=== PATIENT | male | born 1990 | race Caucasian/White ===

== ENCOUNTER 2016-11-26 07:25 | Inpatient (IN) | payer BC ==
[~2016-11-26] VITALS: Ht 182.9 cm; Wt 93.8 kg
[~2016-11-26 07:25] MED LIST: CIPR-9 PO; HYDR50TA94 PO; LORA-474 PO; METR-1 PO; REGL10TA5 PO
[2016-11-26] MEDS ORDERED: GADODIAMIDE PF 287 MG/ML 20 ML VIAL (for RAD MRI) IV PUSH ONE (07:26)
[2016-11-26 07:27] VITALS: BP 142/90; PULSE 90; RESP 20; TEMP 98.8; O2SAT 98
--- NOTE | 2016-11-26 07:29 | PD ---
HPI Chief Complaint: Abdominal Pain Time Seen by Provider: 07:29 Travel History International Travel<30 days: No Contact w/Intl Traveler<30days: No Traveled to known affect area: No History of Present Illness HPI 26-year-old male came to the emergency room with history of right upper quadrant pain that has been there for past 1 week but worse today. Patient was in [place] emergency room yesterday for the exact same complain and had a CAT scan done. The CAT scan showed some heterogeneous area in the right lobe of the liver. An MRI was recommended. Patient was diagnosed with mesenteric adenitis and discharged home and asked to follow up with GI. His is here who was giving most of the history and says a GI appointment is due for tomorrow. However since the pain got really worse they decided to come here. Patient seems visibly uncomfortable and is not talking due to the discomfort. Vital signs are otherwise stable. I looked at his CAT scan and lab report from the [place] visit yesterday. PFSH Past Medical History Narrative Medical List of his past medical, surgical, social and family history is reviewed from the nursing note. Diminished Hearing: No Social History Alcohol Use: No Tobacco Use: Yes (CHEW) Substance Use: No Allergies-Medications (Allergen,Severity, Reaction): Coded Allergies: No Known Allergies (Unverified , 11/26/16) Comments No known drug allergies. Reported Meds & Prescriptions Reported Meds & Active Scripts Active Ativan (Lorazepam) 1 Mg Tab 1 Mg PO BID PRN Reglan (Metoclopramide HCl) 10 Mg Tab 10 Mg PO QID Flagyl (Metronidazole) 500 Mg Tab 500 Mg PO BID 10 Days Cipro (Ciprofloxacin HCl) 500 Mg Tab 500 Mg PO BID 10 Days Reported Hydroxyzine HCl 50 Mg Tab 50 Mg PO HS Narrative Medication List of his home medications reviewed from the nursing note. Review of Systems Except as stated in HPI: all other systems reviewed are Neg Physical Exam Narrative GENERAL: Awake, alert, significant distress, anxious SKIN: Focused skin assessment warm/dry. HEAD: Atraumatic. Normocephalic. EYES: Pupils equal and round. No scleral icterus. No injection or drainage. ENT: No nasal bleeding or discharge. Mucous membranes pink and moist. NECK: Trachea midline. No JVD. CARDIOVASCULAR: Regular rate and rhythm. No murmur appreciated. RESPIRATORY: No accessory muscle use. Clear to auscultation. Breath sounds equal bilaterally. GASTROINTESTINAL: Right upper quadrant guarding and tenderness, nondistended. Hepatic and splenic margins not palpable. MUSCULOSKELETAL: No obvious deformities. No clubbing. No cyanosis. No edema. NEUROLOGICAL: Awake and alert. No obvious cranial nerve deficits. Motor grossly within normal limits. Normal speech. PSYCHIATRIC: Appropriate mood and affect; insight and judgment normal. Data Data Last Documented VS Vital Signs Date Time Temp Pulse Resp B/P (MAP) Pulse Ox O2 Delivery O2 Flow Rate FiO2 11/26/16 07:27 98.8 90 20 142/90 (107) 98 Room Air Orders Orders Complete Blood Count With Diff (11/26/16 07:35) Comprehensive Metabolic Panel (11/26/16 07:35) Lipase (11/26/16 07:35) Lactic Acid (11/26/16 07:35) Urinalysis - C+S If Indicated (11/26/16 07:35) Iv Access Insert/Monitor (11/26/16 07:35) Ecg Monitoring (11/26/16 07:35) Oximetry (11/26/16 07:35) Morphine Inj (Morphine Inj) (11/26/16 07:45) Ondansetron Inj (Zofran Inj) (11/26/16 07:45) Sodium Chlor 0.9% 1000 Ml Inj (Ns 1000 M (11/26/16 07:35) Sodium Chloride 0.9% Flush (Ns Flush) (11/26/16 07:45) Mri Abdomen W&W/O Contrast (11/26/16 ) Gadodiamide Pf Inj (Omniscan Pf Inj) (11/26/16 07:26) Morphine Inj (Morphine Inj) (11/26/16 10:00) Consult Gastroenterology (11/26/16 ) (Hub Use Only)Inp Phy Cons/Ref (11/26/16 ) Admit To Inpatient (11/26/16 ) Code Status (11/26/16 10:27) Vital Signs (Adult) Q4H (11/26/16 10:27) Activity Oob Ad Faith (11/26/16 10:27) Energy Administrator / Telemetry .CONTINUOUS (11/26/16 10:27) Intake + Output CHAO.QSHIFT (11/26/16 10:27) Notify Dr: Other (11/26/16 10:27) Diet Npo (11/26/16 Lunch) Sodium Chlor 0.9% 1000 Ml Inj (Ns 1000 M (11/26/16 11:30) Sodium Chloride 0.9% Flush (Ns Flush) (11/26/16 21:00) Acetaminophen (Tylenol) (11/26/16 10:30) Ondansetron Inj (Zofran Inj) (11/26/16 10:30) Comprehensive Metabolic Panel (11/27/16 06:00) Complete Blood Count With Diff (11/27/16 06:00) Blood Culture (11/26/16 10:27) Case Management Consult (11/26/16 10:27) Scd Bilateral/Knee High CHAO.BID (11/26/16 10:27) Naloxone Inj (Narcan Inj) (11/26/16 10:30) Docusate Sodium-Senna (Shilpa-Colace) (11/26/16 21:00) Magnesium Hydroxide Liq (Milk Of Magnesi (11/26/16 10:30) Sennosides (Senokot) (11/26/16 10:30) Bisacodyl Supp (Dulcolax Supp) (11/26/16 10:30) Lactulose Liq (Lactulose Liq) (11/26/16 10:30) Inpatient Certification (11/26/16 ) Admit Order (Ed Use Only) (11/26/16 10:30) Drug Screen, Random Urine (11/26/16 10:30) Labs Laboratory Tests Test 11/26/16 07:45 11/26/16 09:20 11/26/16 09:30 White Blood Count 13.3 TH/MM3 Red Blood Count 4.42 MIL/MM3 Hemoglobin 13.7 GM/DL Hematocrit 38.6 % Mean Corpuscular Volume 87.2 FL Mean Corpuscular Hemoglobin 31.0 PG Mean Corpuscular Hemoglobin Concent 35.6 % Red Cell Distribution Width 12.4 % Platelet Count 222 TH/MM3 Mean Platelet Volume 7.7 FL Neutrophils (%) (Auto) 42.7 % Lymphocytes (%) (Auto) 22.0 % Monocytes (%) (Auto) 6.1 % Eosinophils (%) (Auto) 28.1 % Basophils (%) (Auto) 1.1 % Neutrophils # (Auto) 5.7 TH/MM3 Lymphocytes # (Auto) 2.9 TH/MM3 Monocytes # (Auto) 0.8 TH/MM3 Eosinophils # (Auto) 3.7 TH/MM3 Basophils # (Auto) 0.1 TH/MM3 CBC Comment DIFF FINAL Differential Comment Blood Urea Nitrogen 7 MG/DL Creatinine 1.10 MG/DL Random Glucose 87 MG/DL Total Protein 8.0 GM/DL Albumin 3.9 GM/DL Calcium Level 8.6 MG/DL Alkaline Phosphatase 111 U/L Aspartate Amino Transf (AST/SGOT) 60 U/L Alanine Aminotransferase (ALT/SGPT) 70 U/L Total Bilirubin 0.6 MG/DL Sodium Level 138 MEQ/L Potassium Level 4.6 MEQ/L Chloride Level 107 MEQ/L Carbon Dioxide Level 25.6 MEQ/L Anion Gap 5 MEQ/L Estimat Glomerular Filtration Rate 81 ML/MIN Lactic Acid Level 1.3 mmol/L Lipase 103 U/L Urine Color YELLOW Urine Turbidity CLEAR Urine pH 6.5 Urine Specific [place] 1.011 Urine Protein NEG mg/dL Urine Glucose (UA) NEG mg/dL Urine Ketones NEG mg/dL Urine Occult Blood NEG Urine Nitrite NEG Urine Bilirubin NEG Urine Urobilinogen LESS THAN 2.0 MG/DL Urine Leukocyte Esterase NEG Urine RBC LESS THAN 1 /hpf Urine WBC LESS THAN 1 /hpf Urine Hyaline Casts 1 /lpf Microscopic Urinalysis Comment CULT NOT INDICATED Urine Opiates Screen NEG Urine Barbiturates Screen NEG Urine Amphetamines Screen NEG Urine Benzodiazepines Screen NEG Urine Cocaine Screen NEG Urine Cannabinoids Screen NEG MDM Medical Decision Making Medical Screen Exam Complete: Yes Emergency Medical Condition: Yes Medical Record Reviewed: Yes Differential Diagnosis Liver abscess, liver hemorrhage Narrative Course 8:47 AM patient was given pain medication. Blood test results of back and patient has some leukocytosis which is slightly worsened than yesterday. LFTs are within acceptable limits. I ordered an MRI of his abdomen with and without contrast and currently patient is in MRI. Awaiting for the report of that. 10:11 AM the MRI report is back which does suggest heterogeneity in the liver with uncertain etiology. CBC shows significant eosinophilia. I discussed the case with GI specialist Dr. Celis and explained to him that I would like to admit this patient given his intractable abdominal pain and the abnormal MRI findings. Awaiting for the hospitalist to call back. Meanwhile at remedicated him for pain. Procedures EKG Prior to Arrival: No Physician Communication Physician Communication Dr. Celis Diagnosis Primary Impression: Intractable abdominal pain Additional Impressions: Abnormal MRI, liver Marked eosinophilia Admitting Information Admitting Physician Requests: it Marielena Yin MD Nov 26, 2016 07:29
[2016-11-26] MEDS ORDERED: SODIUM CHLOR 0.9% 1000 ML INJ 1,000 ML IV SCH (07:35)
[2016-11-26] MEDS ORDERED: SODIUM CHLORIDE 0.9% FLUSH 10 ML FLUSH IV FLUSH PRN ×2 (07:45→10:30)
[2016-11-26] MEDS ORDERED: MORPHINE SULFATE 4 MG/ML INJ IV PUSH ONE ×2 (07:45→10:00)
[2016-11-26] MEDS ORDERED: ONDANSETRON HCL 4 MG/2 ML VIAL IVP ONE (07:45)
[2016-11-26 07:56] LABS: AUTOMATED NEUTROPHIL # 5.7 TH/MM3 (1.8-7.7); BASOPHIL # 0.1 TH/MM3 (0-0.2); BASOPHIL % 1.1 % (0.0-2.0); EOSINOPHIL # 3.7 TH/MM3 (0-0.4); EOSINOPHIL % 28.1 % (0.0-4.0); HEMATOCRIT 38.6 % (39.0-51.0); HEMO FLAGS DIFF FINAL; LYMPHOCYTE # 2.9 TH/MM3 (1.0-4.8); MEAN CELL VOLUME 87.2 FL (80.0-100.0); MEAN CORPUSCULAR HGB CONC 35.6 % (32.0-36.0); MONO % 6.1 % (0.0-8.0); NEUT % 42.7 % (16.0-70.0); PLATELET COUNT 222 TH/MM3 (150-450); RED BLOOD COUNT 4.42 MIL/MM3 (4.50-5.90); RED CELL DISTRIBUTION WIDTH 12.4 % (11.6-17.2); WHITE BLOOD COUNT 13.3 TH/MM3 (4.0-11.0)
[2016-11-26 08:10] LABS: ALKALINE PHOSPHATASE 111 U/L (45-117); TOTAL BILIRUBIN ADULT 0.6 MG/DL (0.2-1.0)
[2016-11-26 08:17] LABS: ALT (GPT) 70 U/L (12-78); ANION GAP 5 MEQ/L (5-15); AST (GOT) 60 U/L (15-37); BICARBONATE 25.6 MEQ/L (21.0-32.0); BLOOD UREA NITROGEN 7 MG/DL (7-18); CHLORIDE 107 MEQ/L (98-107); GLOMERULAR FILTRATION RATE 81 ML/MIN (>89); SODIUM (NA) 138 MEQ/L (136-145)
[2016-11-26 08:20] LABS: POTASSIUM 4.6 MEQ/L (3.5-5.1)
--- NOTE | 2016-11-26 09:42 | RADRPT ---
EXAM DATE/TIME: 11/26/2016 08:33 [facility] COMPARISON: CT ABDOMEN & PELVIS W CONTRAST, November 25, 2016, 3:15. INDICATIONS : Abdominal pain. CONTRAST: 20 cc Omniscan (gadodiamide) IV MEDICAL HISTORY : None. SURGICAL HISTORY : None. ENCOUNTER: Initial ACUITY: 2 day PAIN SCORE: 6/10 LOCATION: Abdomen. TECHNIQUE: Multiplanar, multisequence magnetic resonance imaging of the abdomen was performed without and with i ntravenous contrast. FINDINGS: LIVER: The liver measures 16.7 cm. No fat or iron deposition is appreciated. There is abnormal diffusion sig nal in the right posterior liver primarily involving segments 6 and 7. This area demonstrates heterog eneous enhancement on the equilibrium and portal venous phase of enhancement. Delayed imaging demonst rates no perceived abnormality through this area. There is no definable mass. Portal vein is within n ormal limits. BILIARY: There is no intra- or extra-hepatic biliary ductal dilatation. Gallbladder contains no stones. SPLEEN: Spleen measures 15 cm in length. PANCREAS: Within normal limits. ADRENALS: Within normal limits. KIDNEYS: Normal size and signal intensity. There is no hydronephrosis or mass. OTHER: Aorta is nonaneurysmal. There is no lymphadenopathy. CONCLUSION: 1. Abnormal signal and enhancement in a geographic pattern involving segments 6 and 7. This is of unc ertain etiology. Given the diffusion signal abnormality this is unlikely to be simply related to perf usion abnormality, however, no mass is present. Imaging features are nonspecific. Nonspecific infecti on or inflammation is a consideration. Consider followup MRI in approximately 4-6 weeks to assess for change. 2. Mild splenomegaly. John Miller MD on November 26, 2016 at 9:31 Board Certified Radiologist. This report was verified electronically.
[2016-11-26 10:18] LABS: BLOOD, URINE NEG (NEG); COMMENT (UR) CULT NOT INDICATED; CULTURE IF INDICATED CULT NOT INDICATED; GLUCOSE,URINE NEG (NEG); HYALINE CAST, URINE 1 /lpf (RARE); KETONE, URINE NEG (NEG); NITRITE,URINE NEG (NEG); PH, URINE 6.5 (5.0-8.5); URINE COLOR YELLOW (YELLW/STRAW)
[2016-11-26] MEDS ORDERED: NALOXONE HCL 0.4 MG/ML AMP IV PUSH PRN (10:30)
[2016-11-26] MEDS ORDERED: MAGNESIUM HYDROXIDE SUSP 30 ML CUP PO PRN (10:30)
[2016-11-26] MEDS ORDERED: BISACODYL 10 MG SUPP RECTAL PRN (10:30)
[2016-11-26] MEDS ORDERED: ACETAMINOPHEN 325 MG TAB PO PRN (10:30)
[2016-11-26] MEDS ORDERED: ONDANSETRON HCL 4 MG/2 ML VIAL IVP PRN (10:30)
[2016-11-26] MEDS ORDERED: SENNOSIDES 8.6 MG TAB PO PRN (10:30)
[2016-11-26] MEDS ORDERED: LACTULOSE SYRUP 20 GM/30 ML CUP PO PRN (10:30)
--- NOTE | 2016-11-26 10:30 | HHI.HP ---
HPI Service [facility] Primary Care Physician No Primary Care Physician Admission Diagnosis Diagnoses: Chief Complaint: Abdominal pain Travel History International Travel<30 Days: No Contact w/Intl Traveler <30 Da: No Traveled to Known Affected Are: No History of Present Illness This is a pleasant 26 y/o male with Right upper quadrant pain for one week, but worsening today, he decided to come to ER for evaluation, seen initially at [place] [facility] yesterday and CT scan showed some heterogeneous area in the right lobe of the liver. An MRI was recommended. Patient was diagnosed with mesenteric adenitis and discharged home and asked to follow up with GI. His is here was giving most of the history and says a GI appointment is due for tomorrow. However since the baby got really worse they decided to come here. Patient seems visibly uncomfortable and is not talking due to the discomfort. Vital signs are otherwise stable. Seen in his bedroom and examined, stable no nausea, vomit or diarrhea at this time, he had an episode of nausea and vomit this morning before coming to ER, abdominal pain on epigastric area and upper left and right abdominal pain, 8/10 in intensity non radiated. Review of Systems Constitutional: DENIES: Fever, Chills, Change in appetite Endocrine: DENIES: Heat/cold intolerance Eyes: DENIES: Blurred vision, Eye pain Gastrointestinal: COMPLAINS OF: Abdominal pain, Nausea, Vomiting Except as stated in HPI: all other systems reviewed are Neg Past Family Social History Past Medical History No significant past medical history Past Surgical History Negative Reported Medications Reported Meds & Active Scripts Active Ativan (Lorazepam) 1 Mg Tab 1 Mg PO BID PRN Reglan (Metoclopramide HCl) 10 Mg Tab 10 Mg PO QID Flagyl (Metronidazole) 500 Mg Tab 500 Mg PO BID 10 Days Cipro (Ciprofloxacin HCl) 500 Mg Tab 500 Mg PO BID 10 Days Reported Hydroxyzine HCl 50 Mg Tab 50 Mg PO HS Allergies: Coded Allergies: No Known Allergies (Unverified , 11/26/16) Active Ordered Medications Current Medications Medications (Trade) Dose Ordered Sig/Josh Route Start Time Stop Time Status Last Admin (NS Flush) 2 ml UNSCH PRN IV FLUSH 11/26/16 07:45 Sodium Chloride 1,000 ml @ 100 mls/hr Q10H IV 11/26/16 11:30 (NS Flush) 2 ml BID IV FLUSH 11/26/16 21:00 (Tylenol) 650 mg Q4H PRN PO 11/26/16 10:30 (Zofran Inj) 4 mg Q6H PRN IVP 11/26/16 10:30 (Narcan Inj) 0.4 mg UNSCH PRN IV PUSH 11/26/16 10:30 (Shilpa-Colace) 1 tab BID PO 11/26/16 21:00 (Milk Of Magnesia Liq) 30 ml Q12H PRN PO 11/26/16 10:30 (Senokot) 17.2 mg Q12H PRN PO 11/26/16 10:30 (Dulcolax Supp) 10 mg DAILY PRN RECTAL 11/26/16 10:30 (Lactulose Liq) 30 ml DAILY PRN PO 11/26/16 10:30 (Morphine Inj) 2 mg Q3H PRN IV PUSH 11/26/16 10:45 Piperacillin Sod/ Tazobactam Sod 50 ml @ 100 mls/hr Q6H IV 11/26/16 12:00 (Protonix Inj) 40 mg Q24H IV PUSH 11/26/16 12:00 Family History asked and denied by patient. Social History Denies alcohol abuse, Tobacco use Chew tobacco Physical Exam Vital Signs Vital Signs Date Time Temp Pulse Resp B/P (MAP) Pulse Ox O2 Delivery O2 Flow Rate FiO2 11/26/16 07:27 98.8 90 20 142/90 (107) 98 Room Air Physical Exam GENERAL: Overweight, No acute distress. SKIN: Focused skin assessment warm/dry. HEAD: Atraumatic. Normocephalic. EYES: Pupils equal and round. No scleral icterus. No injection or drainage. ENT: No nasal bleeding or discharge. Mucous membranes pink and moist. NECK: Trachea midline. No JVD. CARDIOVASCULAR: Regular rate and rhythm. No murmur appreciated. RESPIRATORY: No accessory muscle use. Clear to auscultation. Breath sounds equal bilaterally. GASTROINTESTINAL: Soft, mild tenderness on palpation, positive bowel sounds. MUSCULOSKELETAL: No obvious deformities. No clubbing. No cyanosis. No edema. NEUROLOGICAL: Awake and alert. No obvious cranial nerve deficits. Motor grossly within normal limits. Normal speech. PSYCHIATRIC: Appropriate mood and affect; insight and judgment normal. Laboratory Laboratory Tests Test 11/26/16 07:45 11/26/16 09:20 White Blood Count 13.3 Red Blood Count 4.42 Hemoglobin 13.7 Hematocrit 38.6 Mean Corpuscular Volume 87.2 Mean Corpuscular Hemoglobin 31.0 Mean Corpuscular Hemoglobin Concent 35.6 Red Cell Distribution Width 12.4 Platelet Count 222 Mean Platelet Volume 7.7 Neutrophils (%) (Auto) 42.7 Lymphocytes (%) (Auto) 22.0 Monocytes (%) (Auto) 6.1 Eosinophils (%) (Auto) 28.1 Basophils (%) (Auto) 1.1 Neutrophils # (Auto) 5.7 Lymphocytes # (Auto) 2.9 Monocytes # (Auto) 0.8 Eosinophils # (Auto) 3.7 Basophils # (Auto) 0.1 CBC Comment DIFF FINAL Differential Comment Blood Urea Nitrogen 7 Creatinine 1.10 Random Glucose 87 Total Protein 8.0 Albumin 3.9 Calcium Level 8.6 Alkaline Phosphatase 111 Aspartate Amino Transf (AST/SGOT) 60 Alanine Aminotransferase (ALT/SGPT) 70 Total Bilirubin 0.6 Sodium Level 138 Potassium Level 4.6 Chloride Level 107 Carbon Dioxide Level 25.6 Anion Gap 5 Estimat Glomerular Filtration Rate 81 Lactic Acid Level 1.3 Lipase 103 Urine Color YELLOW Urine Turbidity CLEAR Urine pH 6.5 Urine Specific [place] 1.011 Urine Protein NEG Urine Glucose (UA) NEG Urine Ketones NEG Urine Occult Blood NEG Urine Nitrite NEG Urine Bilirubin NEG Urine Urobilinogen LESS THAN 2.0 Urine Leukocyte Esterase NEG Urine RBC LESS THAN 1 Urine WBC LESS THAN 1 Urine Hyaline Casts 1 Microscopic Urinalysis Comment CULT NOT INDICATED Result Diagram: 11/26/16 0745 11/26/16 0745 Imaging Last Impressions Abdomen MRI 11/26/16 0000 Signed Impressions: Service Date/Time: Saturday, November 26, 2016 08:33 - CONCLUSION: 1. Abnormal signal and enhancement in a geographic pattern involving segments 6 and 7. This is of uncertain etiology. Given the diffusion signal abnormality this is unlikely to be simply related to perfusion abnormality, however, no mass is present. Imaging features are nonspecific. Nonspecific infection or inflammation is a consideration. Consider followup MRI in approximately 4-6 weeks to assess for change. 2. Mild splenomegaly. John Miller MD Caprinjim VTE Risk Assessment Caprini VTE Risk Assessment: No/Low Risk (score <= 1) Caprini Risk Assessment Model Point Value = 1 Point Value = 2 Point Value = 3 Point Value = 5 Age 41-60 Minor surgery BMI > 25 kg/m2 Swollen legs Varicose veins or History of unexplained or recurrent spontaneous Oral contraceptives or hormone replacement Sepsis (< 1 month) Serious lung disease, including pneumonia (< 1 month) Abnormal pulmonary function Acute myocardial infarction Congestive heart failure (< 1 month) History of inflammatory bowel disease Medical patient at bed rest Age 61-74 Arthroscopic surgery Major open surgery (> 45 min) Laparoscopic surgery (> 45 min) Malignancy Confined to bed (> 72 hours) Immobilizing plaster cast Central venous access Age >= 75 History of VTE Family history of VTE Factor V Leiden Prothrombin [id number] Lupus anticoagulant Anticardiolipin antibodies Elevated serum homocysteine Heparin-induced thrombocytopenia Other congenital or acquired thrombophilia Stroke (< 1 month) Elective arthroplasty Hip, pelvis, or leg fracture Acute spinal cord injury (< 1 month) Prophylaxis Regimen Total Risk Factor Score Risk Level Prophylaxis Regimen 0-1 Low Early ambulation 2 Moderate Order ONE of the following: *Sequential Compression Device (SCD) *Heparin 5000 units SQ BID 3-4 Higher Order ONE of the following medications: *Heparin 5000 units SQ TID *Enoxaparin/Lovenox 40 mg SQ daily (WT < 150 kg, CrCl > 30 mL/min) *Enoxaparin/Lovenox 30 mg SQ daily (WT < 150 kg, CrCl > 10-29 mL/min) *Enoxaparin/Lovenox 30 mg SQ BID (WT < 150 kg, CrCl > 30 mL/min) AND/OR *Sequential Compression Device (SCD) 5 or more Highest Order ONE of the following medications: *Heparin 5000 units SQ TID (Preferred with Epidurals) *Enoxaparin/Lovenox 40 mg SQ daily (WT < 150 kg, CrCl > 30 mL/min) *Enoxaparin/Lovenox 30 mg SQ daily (WT < 150 kg, CrCl > 10-29 mL/min) *Enoxaparin/Lovenox 30 mg SQ BID (WT < 150 kg, CrCl > 30 mL/min) AND *Sequential Compression Device (SCD) Assessment and Plan Assessment and Plan 1. Intractable Abdominal pain, nausea and vomit with abnormal Imaging study at this time improved his nausea and vomit, continue with abdominal pain, GI specialist in to see the patient at this time, will follow recommendations given IV fluids and left NPO for probable procedures has eosinophils high Heterogeneity in the liver with uncertain etiology. continue Famotidine pain medicine and supportive IV fluids. DVT prophylaxis with SCDs for probable procedure to follow. Code Status Full Code. Discussed Condition With Marielena Yin MD Physician Certification 2 Midnight Certification Type: Admission for Inpatient Services Order for Inpatient Services The services are ordered in accordance with Medicare regulations or non- Medicare payer requirements, as applicable. In the case of services not specified as inpatient-only, they are appropriately provided as inpatient services in accordance with the 2-midnight benchmark. Estimated LOS (days): 3 days is the estimated time the patient will need to remain in the hospital, assuming treatment plan goals are met and no additional complications. Post-Hospital Plan: Home Alexis Fischer MD Nov 26, 2016 10:30
[2016-11-26] MEDS ORDERED: FAMOTIDINE 20 MG/2 ML VIAL IV PUSH SCH (10:45)
--- NOTE | 2016-11-26 11:00 | PD.CONS ---
HPI History of Present Illness This is a 26 year old male who was recently seen at the [facility] ER (11/24) for diffuse abdominal pain with associated nausea and vomiting x 1 week. This is a constant sharp pain in his epigastric area that then turns into a constant dull ache. It radiates up into his chest, but denies any radiation to his back. He also c/o dull aching in his right and left shoulder. He has intermittent nausea/vomiting with bilious material. He started having diarrhea yesterday morning, with 2 loose stools- darker than usual. He reports chills and a T. Max of 100.0. CT scan abdomen and pelvis (11/25/16) revealed mild inflammatory process involving the mesentery within the left upper quadrant suggesting a mesentery right us. Areas of heterogeneity involving the right lobe of the liver. This may simply be technical nature related to the phase of the scan which is relatively early in the portal venous phase. I cannot exclude an infiltrating process. A follow-up outpatient MRI of the liver suggested to further evaluate. He was discharged home with Ativan, Reglan, Flagyl/Cipro x 10 days and instructed to follow up with GI as soon as possible. He was seen by Dr. Brown yesterday and he recommended CRP, IBD panel, Celiac disease panel to rule out small bowel disease, Levsin as needed, EGD/ Colonoscopy with plans for a capsule endoscopy if negative, continuing abx, adding zofran as needed, and stool studies for culture and ova and parasite. He has not started the antibiotics yet because he was told to get his labs drawn prior to starting the medications. He woke up this morning with the same pain, but states it was much worse and therefore he came to the ER for evaluation. He denies any recent travel, suspicious food, sick contacts. (Ramila Barone) PFSH Past Medical History No significant past medical history Past Surgical History Denies (Ramila Barone) Coded Allergies: No Known Allergies (Unverified , 11/26/16) Medications Allergies Coded Allergies Type Severity Reaction Last Updated Verified No Known Allergies 11/26/16 No Active Scripts Medications Dose Route/Sig Max Daily Dose Days Date Category Ativan (Lorazepam) 1 Mg Tab 1 Mg PO BID PRN 11/25/16 Rx Reglan (Metoclopramide HCl) 10 Mg Tab 10 Mg PO QID 11/25/16 Rx Flagyl (Metronidazole) 500 Mg Tab 500 Mg PO BID 10 11/25/16 Rx Cipro (Ciprofloxacin HCl) 500 Mg Tab 500 Mg PO BID 10 11/25/16 Rx Hydroxyzine HCl 50 Mg Tab 50 Mg PO HS 11/24/16 Reported Family History Denies any family hx of IBD, esophageal, gastric, or colorectal cancer. Social History He chews tobacco Rare etoh use No illicit drug use (Ramila Barone) Review of Systems Constitutional: COMPLAINS OF: Fatigue, Fever (low grade 100.0), Chills, Change in appetite Respiratory: DENIES: Cough Cardiovascular: COMPLAINS OF: Chest pain Gastrointestinal: COMPLAINS OF: Abdominal pain, Black stools (dark stools- not black), Diarrhea, Nausea, Vomiting, Heartburn, DENIES: Bloody stools, Constipation Musculoskeletal: COMPLAINS OF: Joint pain Hematologic/lymphatic: DENIES: Bruising Neurologic: DENIES: Headache Psychiatric: DENIES: Confusion (Ramila Barone) GI Exam Vitals I&O Vital Signs Date Time Temp Pulse Resp B/P (MAP) Pulse Ox O2 Delivery O2 Flow Rate FiO2 11/26/16 07:27 98.8 90 20 142/90 (107) 98 Room Air Imaging Last Impressions Abdomen MRI 11/26/16 0000 Signed Impressions: Service Date/Time: Saturday, November 26, 2016 08:33 - CONCLUSION: 1. Abnormal signal and enhancement in a geographic pattern involving segments 6 and 7. This is of uncertain etiology. Given the diffusion signal abnormality this is unlikely to be simply related to perfusion abnormality, however, no mass is present. Imaging features are nonspecific. Nonspecific infection or inflammation is a consideration. Consider followup MRI in approximately 4-6 weeks to assess for change. 2. Mild splenomegaly. John Miller MD Laboratory Test 11/26/16 07:45 11/26/16 09:20 11/26/16 09:30 White Blood Count 13.3 TH/MM3 Red Blood Count 4.42 MIL/MM3 Hemoglobin 13.7 GM/DL Hematocrit 38.6 % Mean Corpuscular Volume 87.2 FL Mean Corpuscular Hemoglobin 31.0 PG Mean Corpuscular Hemoglobin Concent 35.6 % Red Cell Distribution Width 12.4 % Platelet Count 222 TH/MM3 Mean Platelet Volume 7.7 FL Neutrophils (%) (Auto) 42.7 % Lymphocytes (%) (Auto) 22.0 % Monocytes (%) (Auto) 6.1 % Eosinophils (%) (Auto) 28.1 % Basophils (%) (Auto) 1.1 % Neutrophils # (Auto) 5.7 TH/MM3 Lymphocytes # (Auto) 2.9 TH/MM3 Monocytes # (Auto) 0.8 TH/MM3 Eosinophils # (Auto) 3.7 TH/MM3 Basophils # (Auto) 0.1 TH/MM3 CBC Comment DIFF FINAL Differential Comment Blood Urea Nitrogen 7 MG/DL Creatinine 1.10 MG/DL Random Glucose 87 MG/DL Total Protein 8.0 GM/DL Albumin 3.9 GM/DL Calcium Level 8.6 MG/DL Alkaline Phosphatase 111 U/L Aspartate Amino Transf (AST/SGOT) 60 U/L Alanine Aminotransferase (ALT/SGPT) 70 U/L Total Bilirubin 0.6 MG/DL Sodium Level 138 MEQ/L Potassium Level 4.6 MEQ/L Chloride Level 107 MEQ/L Carbon Dioxide Level 25.6 MEQ/L Anion Gap 5 MEQ/L Estimat Glomerular Filtration Rate 81 ML/MIN Lactic Acid Level 1.3 mmol/L Lipase 103 U/L Urine Color YELLOW Urine Turbidity CLEAR Urine pH 6.5 Urine Specific [place] 1.011 Urine Protein NEG mg/dL Urine Glucose (UA) NEG mg/dL Urine Ketones NEG mg/dL Urine Occult Blood NEG Urine Nitrite NEG Urine Bilirubin NEG Urine Urobilinogen LESS THAN 2.0 MG/DL Urine Leukocyte Esterase NEG Urine RBC LESS THAN 1 /hpf Urine WBC LESS THAN 1 /hpf Urine Hyaline Casts 1 /lpf Microscopic Urinalysis Comment CULT NOT INDICATED Physical Examination HEENT: Normocephalic; atraumatic; no jaundice. CHEST: CTA CARDIAC: RRR ABDOMEN: Soft, mildly bloated, diffuse tenderness; no hepatosplenomegaly; bowel sounds are present in all four quadrants. EXTREMITIES: No clubbing, cyanosis, or edema. SKIN: Normal; no rash; no jaundice. PUBLIC RELATIONS: No focal deficits; alert and oriented times three. (Ramila Barone) Assessment and Plan Plan ASSESSMENT: - Abdominal pain, N/V/D with abnormal imaging with possible mild inflammatory process involving the mesentery. Symptoms x 1 week. S/P ER evaluation [place] (11/24/16)-----> CT scan abdomen and pelvis (11/25/16) revealed mild inflammatory process involving the mesentery within the left upper quadrant suggesting a mesentery right us. Areas of heterogeneity involving the right lobe of the liver. This may simply be technical nature related to the phase of the scan which is relatively early in the portal venous phase. I cannot exclude an infiltrating process. A follow-up outpatient MRI of the liver suggested to further evaluate. Discharged home with Ativan, Reglan, Flagyl/ Cipro x 10 days. S/P GI Evaluation with Dr. Brown (11/25/16)---> recommended CRP, IBD panel, Celiac disease panel to rule out small bowel disease, Levsin as needed, EGD/Colonoscopy with plans for a capsule endoscopy if negative, continuing abx, adding zofran as needed, and stool studies for culture and ova and parasite. Pt woke up with worsening symptoms and came to ER. He has not started abx. Denies any recent travel, suspicious food, sick contacts. MRI (11/26/16)---> abnormal signal and enhancement in a geographic pattern involving segment 6 and 7. This is of uncertain etiology. Given the diffuse signal abnormality this is unlikely to be simply related to perfusion abnormality, however, no masses present. Imaging features are nonspecific. Nonspecific infection or inflammation is a consideration. Consider follow-up MRI in 4-6 weeks to assess for change. Mild splenomegaly. WBC 13.3. Zosyn. Stool studies. - Leukocytosis. WBC 13.3. Zosyn. Get stool studies - Mild elevation of AST. CT/MRI as above. T. Bili 0.6, AST 60, ALT 70, Alk Phosph 111. PLAN: - NPO for now - IVF - Zosyn - PPI - Stool studies - ASCA, P-ANCA- type in lab test - CRP, Celiac panel - Further recommendations to follow after results of above - Pt seen and examined by Dr. Celis and myself and this note is written on his behalf (Ramila Barone) Physician Comments Patient seen and examined Agree with above Continue with current supportive care Monitor labs (Neftali Celis MD) Ramila Barone Nov 26, 2016 11:00 Neftali Celis MD Nov 26, 2016 20:32
[2016-11-26 11:46] VITALS: BP 124/76
[2016-11-26] MEDS: SODIUM CHLOR 0.9% 1000 ML INJ 1,000 ML IV SCH (12:37)
[2016-11-26] MEDS: PANTOPRAZOLE SODIUM 40 MG VIAL IV PUSH SCH (12:38)
[2016-11-26] MEDS: PIPERACIL-TAZO 3.375 GM PREMIX 50 ML IV SCH ×3 (12:38→22:50)
[2016-11-26 12:43] VITALS: BP 143/87; PULSE 77; RESP 20; TEMP 98.2; O2SAT 97
[2016-11-26 20:00] VITALS: BP 140/78; PULSE 65; RESP 18; TEMP 98.3; O2SAT 97
[2016-11-26] MEDS: DOCUSATE SODIUM 50 MG/SENNA 8.6 MG TAB PO SCH (21:00)
[2016-11-26] MEDS: SODIUM CHLORIDE 0.9% FLUSH 10 ML FLUSH IV FLUSH SCH (22:50)
[2016-11-26] MEDS: MORPHINE SULFATE 4 MG/ML INJ IV PUSH PRN (22:50)
[2016-11-27] VITALS (7 sets, daily range): BP systolic 122–134; BP diastolic 55–77; PULSE 64–80; RESP 16–20; TEMP 98.3–98.7; O2SAT 97–99
[2016-11-27] MEDS: SODIUM CHLOR 0.9% 1000 ML INJ 1,000 ML IV SCH ×2 (01:51→07:30)
[2016-11-27] MEDS: PIPERACIL-TAZO 3.375 GM PREMIX 50 ML IV SCH ×4 (05:18→23:45)
[2016-11-27] MEDS: MORPHINE SULFATE 4 MG/ML INJ IV PUSH PRN (05:19)
[2016-11-27] MEDS: DOCUSATE SODIUM 50 MG/SENNA 8.6 MG TAB PO SCH ×2 (08:11→21:00)
[2016-11-27] MEDS: SODIUM CHLORIDE 0.9% FLUSH 10 ML FLUSH IV FLUSH SCH ×2 (08:11→21:00)
--- NOTE | 2016-11-27 09:55 | HHI.PR ---
Subjective Remarks This is a pleasant 26 y/o male with Right upper quadrant pain for one week, but worsening today, he decided to come to ER for evaluation, seen initially at [facility] yesterday and CT scan showed some heterogeneous area in the right lobe of the liver. An MRI was recommended. Patient was diagnosed with mesenteric adenitis and discharged home and asked to follow up with GI. His is here was giving most of the history and says a GI appointment is due for tomorrow. However since the baby got really worse they decided to come here. Patient seems visibly uncomfortable and is not talking due to the discomfort. Vital signs are otherwise stable. Seen in his bedroom and examined, stable no nausea, vomit or diarrhea at this time, he had an episode of nausea and vomit this morning before coming to ER, abdominal pain on epigastric area and upper left and right abdominal pain, 8/10 in intensity non radiated. 11/27: Seen by GI specialist, recommended to continue NPO, IV fluids, continue Zosyn, laboratory performed. with Diagnosis of Abdominal pain with Nausea, vomit and diarrhea, was performed EGD found GERD and Erosive Gastritis. continue PPIs. Objective Vital Signs Date Time Temp Pulse Resp B/P (MAP) Pulse Ox O2 Delivery O2 Flow Rate FiO2 11/27/16 09:16 98.7 64 20 134/73 (93) 99 11/27/16 04:33 98.5 78 16 125/55 (78) 98 11/27/16 01:12 98.4 68 16 131/61 (84) 97 11/26/16 20:00 98.3 65 18 140/78 (98) 97 11/26/16 12:43 98.2 77 20 143/87 (105) 97 11/26/16 11:46 69 15 124/76 (92) 98 I/O 11/26/16 11/26/16 11/26/16 11/27/16 11/27/16 11/27/16 07:00 15:00 23:00 07:00 15:00 23:00 # Voids 4 4 Result Diagram: 11/26/16 0745 11/26/16 0745 Imaging Last Impressions Abdomen MRI 11/26/16 0000 Signed Impressions: Service Date/Time: Saturday, November 26, 2016 08:33 - CONCLUSION: 1. Abnormal signal and enhancement in a geographic pattern involving segments 6 and 7. This is of uncertain etiology. Given the diffusion signal abnormality this is unlikely to be simply related to perfusion abnormality, however, no mass is present. Imaging features are nonspecific. Nonspecific infection or inflammation is a consideration. Consider followup MRI in approximately 4-6 weeks to assess for change. 2. Mild splenomegaly. John Miller MD Procedures None Other Results Laboratory Tests Test 11/26/16 07:45 11/26/16 09:20 11/26/16 09:30 11/26/16 13:15 White Blood Count 13.3 TH/MM3 Red Blood Count 4.42 MIL/MM3 Hemoglobin 13.7 GM/DL Hematocrit 38.6 % Mean Corpuscular Volume 87.2 FL Mean Corpuscular Hemoglobin 31.0 PG Mean Corpuscular Hemoglobin Concent 35.6 % Red Cell Distribution Width 12.4 % Platelet Count 222 TH/MM3 Mean Platelet Volume 7.7 FL Neutrophils (%) (Auto) 42.7 % Lymphocytes (%) (Auto) 22.0 % Monocytes (%) (Auto) 6.1 % Eosinophils (%) (Auto) 28.1 % Basophils (%) (Auto) 1.1 % Neutrophils # (Auto) 5.7 TH/MM3 Lymphocytes # (Auto) 2.9 TH/MM3 Monocytes # (Auto) 0.8 TH/MM3 Eosinophils # (Auto) 3.7 TH/MM3 Basophils # (Auto) 0.1 TH/MM3 CBC Comment DIFF FINAL Differential Comment Blood Urea Nitrogen 7 MG/DL Creatinine 1.10 MG/DL Random Glucose 87 MG/DL Total Protein 8.0 GM/DL Albumin 3.9 GM/DL Calcium Level 8.6 MG/DL Alkaline Phosphatase 111 U/L Aspartate Amino Transf (AST/SGOT) 60 U/L Alanine Aminotransferase (ALT/SGPT) 70 U/L Total Bilirubin 0.6 MG/DL Sodium Level 138 MEQ/L Potassium Level 4.6 MEQ/L Chloride Level 107 MEQ/L Carbon Dioxide Level 25.6 MEQ/L Anion Gap 5 MEQ/L Estimat Glomerular Filtration Rate 81 ML/MIN Lactic Acid Level 1.3 mmol/L Lipase 103 U/L Urine Color YELLOW Urine Turbidity CLEAR Urine pH 6.5 Urine Specific [place] 1.011 Urine Protein NEG mg/dL Urine Glucose (UA) NEG mg/dL Urine Ketones NEG mg/dL Urine Occult Blood NEG Urine Nitrite NEG Urine Bilirubin NEG Urine Urobilinogen LESS THAN 2.0 MG/DL Urine Leukocyte Esterase NEG Urine RBC LESS THAN 1 /hpf Urine WBC LESS THAN 1 /hpf Urine Hyaline Casts 1 /lpf Microscopic Urinalysis Comment CULT NOT INDICATED Urine Opiates Screen NEG Urine Barbiturates Screen NEG Urine Amphetamines Screen NEG Urine Benzodiazepines Screen NEG Urine Cocaine Screen NEG Urine Cannabinoids Screen NEG C-Reactive Protein 0.68 MG/DL Test 11/26/16 13:20 Erythrocyte Sedimentation Rate 29 mm/hr Objective Remarks GENERAL: Overweight, No acute distress. SKIN: Focused skin assessment warm/dry. HEAD: Atraumatic. Normocephalic. EYES: Pupils equal and round. No scleral icterus. No injection or drainage. ENT: No nasal bleeding or discharge. Mucous membranes pink and moist. NECK: Trachea midline. No JVD. CARDIOVASCULAR: Regular rate and rhythm. No murmur appreciated. RESPIRATORY: No accessory muscle use. Clear to auscultation. Breath sounds equal bilaterally. GASTROINTESTINAL: Soft, mild tenderness on palpation, positive bowel sounds. MUSCULOSKELETAL: No obvious deformities. No clubbing. No cyanosis. No edema. NEUROLOGICAL: Awake and alert. No obvious cranial nerve deficits. Motor grossly within normal limits. Normal speech. PSYCHIATRIC: Appropriate mood and affect; insight and judgment normal. Medications and IVs Current Medications Medications (Trade) Dose Ordered Sig/Josh Route Start Time Stop Time Status Last Admin (NS Flush) 2 ml UNSCH PRN IV FLUSH 11/26/16 07:45 11/27/16 05:19 Sodium Chloride 1,000 ml @ 100 mls/hr Q10H IV 11/26/16 11:30 11/27/16 01:51 (NS Flush) 2 ml BID IV FLUSH 11/26/16 21:00 11/26/16 22:50 (Tylenol) 650 mg Q4H PRN PO 11/26/16 10:30 (Zofran Inj) 4 mg Q6H PRN IVP 11/26/16 10:30 11/26/16 22:50 (Narcan Inj) 0.4 mg UNSCH PRN IV PUSH 11/26/16 10:30 (Shilpa-Colace) 1 tab BID PO 11/26/16 21:00 11/27/16 08:11 (Milk Of Magnesia Liq) 30 ml Q12H PRN PO 11/26/16 10:30 (Senokot) 17.2 mg Q12H PRN PO 11/26/16 10:30 (Dulcolax Supp) 10 mg DAILY PRN RECTAL 11/26/16 10:30 (Lactulose Liq) 30 ml DAILY PRN PO 11/26/16 10:30 (Morphine Inj) 2 mg Q3H PRN IV PUSH 11/26/16 10:45 11/27/16 05:19 Piperacillin Sod/ Tazobactam Sod 50 ml @ 100 mls/hr Q6H IV 11/26/16 12:00 11/27/16 05:18 (Protonix Inj) 40 mg Q24H IV PUSH 11/26/16 12:00 11/26/16 12:38 A/P Assessment and Plan 1. Intractable Abdominal pain, nausea and vomit with abnormal Imaging study at this time improved his nausea and vomit, continue with abdominal pain, GI specialist in to see the patient at this time, will follow recommendations given IV fluids and left NPO for probable procedures has eosinophils high Heterogeneity in the liver with uncertain etiology. continue Famotidine pain medicine and supportive IV fluids. was performed EGD found GERD and Erosive Gastritis. continue PPIs. Improved Symptomatology. Seen in his bedroom patient wants to go home, discussed with Charge nurse will try to get the clearance by GI specialist going home. DVT prophylaxis with SCDs for probable procedure to follow. Code Status Full Code. Discussed Condition With Patient and Charge Nurse. all questions answered to the best of my abilities. Discharge Planning Expected later today. Alexis Fischer MD Nov 27, 2016 09:55
[2016-11-27 11:22] LABS: AUTOMATED NEUTROPHIL # 4.6 TH/MM3 (1.8-7.7); BASOPHIL # 0.3 TH/MM3 (0-0.2); BASOPHIL % 2.4 % (0.0-2.0); EOSINOPHIL # 3.7 TH/MM3 (0-0.4); EOSINOPHIL % 30.3 % (0.0-4.0); HEMO FLAGS DIFF FINAL; LYMPH % 24.5 % (9.0-44.0); MEAN CELL VOLUME 87.8 FL (80.0-100.0); MEAN CORPUSCULAR HEMOGLOBIN 30.4 PG (27.0-34.0); MEAN CORPUSCULAR HGB CONC 34.6 % (32.0-36.0); MONO % 5.2 % (0.0-8.0); NEUT % 37.6 % (16.0-70.0); PLATELET COUNT 195 TH/MM3 (150-450); RED BLOOD COUNT 4.32 MIL/MM3 (4.50-5.90); RED CELL DISTRIBUTION WIDTH 12.2 % (11.6-17.2); WHITE BLOOD COUNT 12.2 TH/MM3 (4.0-11.0)
[2016-11-27] MEDS ORDERED: PROPOFOL 200 MG/20 ML AMP IV ONE (12:00)
[2016-11-27] MEDS: PANTOPRAZOLE SODIUM 40 MG VIAL IV PUSH SCH (12:00)
[2016-11-27] MEDS ORDERED: ONDANSETRON HCL 4 MG/2 ML VIAL IV PUSH ONE (12:00)
[2016-11-27] MEDS ORDERED: LIDOCAINE HCL 1% PF 5 ML AMPULE OTHER ONE (12:00)
[2016-11-27] MEDS ORDERED: SUCCINYLCHOLINE CHLORIDE 100 MG/5 ML SYRINGE IV PUSH ONE (12:00)
[2016-11-27] MEDS ORDERED: LACTATED RINGER'S 1000 ML INJ 1,000 ML IV ONE (12:00)
[2016-11-27 12:06] LABS: ALKALINE PHOSPHATASE 107 U/L (45-117); ALT (GPT) 50 U/L (12-78); ANION GAP 9 MEQ/L (5-15); AST (GOT) 17 U/L (15-37); BICARBONATE 26.4 MEQ/L (21.0-32.0); BLOOD UREA NITROGEN 8 MG/DL (7-18); CHLORIDE 105 MEQ/L (98-107); GLOMERULAR FILTRATION RATE 79 ML/MIN (>89); POTASSIUM 3.3 MEQ/L (3.5-5.1); SODIUM (NA) 140 MEQ/L (136-145); TOTAL BILIRUBIN ADULT 0.9 MG/DL (0.2-1.0)
[2016-11-27] MEDS ORDERED: DO NOT ADM ANY ANTICOAGULANT DRUGS PRN ×2 (14:10)
--- NOTE | 2016-11-27 14:18 | PD.PROCEDR ---
GI Procedure REFERRING PHYSICIAN Steph PROCEDURE PERFORMED EGD with biopsy INDICATION FOR PROCEDURE Abdominal pain with nausea and vomiting and diarrhea PROCEDURE: The procedure, risks and benefits were discussed with Mr. Farias and informed consent was obtained. Anesthesia sedated him with Diprivan. He was placed in the left lateral decubitus position. EGD: The Pentax videoscope was introduced through the oropharynx and advanced to the second portion of the duodenum under direct visualization. Retroflexion was performed in the stomach. FINDINGS: Esophagus there was some mild distal esophageal mucosal hyperplasia suggestive of chronic reflux this was biopsied Stomach there was patchy erythema in the antrum with superficial erosions no ulcerations no blood or bleeding the rest of the gastric mucosa was unremarkable antral biopsies were taken further evaluation The duodenum this appeared to be unremarkable and within normal limits ESTIMATED BLOOD LOSS: None SPECIMENS REMOVED: Esophageal and gastric biopsies COMPLICATIONS: None IMPRESSION: Gastroesophageal reflux disease Erosive gastritis PLAN: Await biopsies Avoid NSAIDs Start Protonix 40 mg daily Advance diet Monitor labs Neftali Celis MD Nov 27, 2016 14:18
[2016-11-27] MEDS: PANTOPRAZOLE SOD 40 MG DELAYED RELEASE TAB PO SCH (17:00)
[2016-11-28 00:51] VITALS: BP 118/67; PULSE 66; RESP 17; TEMP 98.1; O2SAT 97
[2016-11-28 02:32] LABS: C. DIFF EPI 027 PRESUMPTIVE NEGATIVE (NEGATIVE)
[2016-11-28 04:30] VITALS: BP 112/68; PULSE 69; RESP 17; TEMP 98.3; O2SAT 97
[2016-11-28] MEDS: PIPERACIL-TAZO 3.375 GM PREMIX 50 ML IV SCH ×2 (05:47→12:31)
[2016-11-28 06:56] LABS: HEMATOCRIT 38.1 % (39.0-51.0); MEAN CELL VOLUME 86.8 FL (80.0-100.0); MEAN CORPUSCULAR HEMOGLOBIN 30.6 PG (27.0-34.0); MEAN CORPUSCULAR HGB CONC 35.3 % (32.0-36.0); PLATELET COUNT 221 TH/MM3 (150-450); RED BLOOD COUNT 4.39 MIL/MM3 (4.50-5.90); RED CELL DISTRIBUTION WIDTH 12.1 % (11.6-17.2); REVIEW FLAG FINAL; WHITE BLOOD COUNT 13.2 TH/MM3 (4.0-11.0)
[2016-11-28 07:23] LABS: ANION GAP 9 MEQ/L (5-15); AST (GOT) 21 U/L (15-37); BLOOD UREA NITROGEN 9 MG/DL (7-18); CHLORIDE 108 MEQ/L (98-107); GLOMERULAR FILTRATION RATE 80 ML/MIN (>89); POTASSIUM 3.6 MEQ/L (3.5-5.1); SODIUM (NA) 143 MEQ/L (136-145)
[2016-11-28 07:24] LABS: ALT (GPT) 52 U/L (12-78)
[2016-11-28 07:26] LABS: ALKALINE PHOSPHATASE 110 U/L (45-117); TOTAL BILIRUBIN ADULT 0.7 MG/DL (0.2-1.0)
[2016-11-28 08:00] VITALS: BP 139/90; PULSE 72; PULSE 80; RESP 20; TEMP 98.5; O2SAT 98
[2016-11-28] MEDS: PANTOPRAZOLE SOD 40 MG DELAYED RELEASE TAB PO SCH (08:55)
[2016-11-28] MEDS: DOCUSATE SODIUM 50 MG/SENNA 8.6 MG TAB PO SCH (08:55)
[2016-11-28] MEDS: SODIUM CHLORIDE 0.9% FLUSH 10 ML FLUSH IV FLUSH SCH (09:00)
[2016-11-28 10:10] VITALS: O2SAT 98
[2016-11-28 11:30] VITALS: BP 129/70; PULSE 76; RESP 16; TEMP 98.1; O2SAT 96
[2016-11-28] MEDS: PANTOPRAZOLE SODIUM 40 MG VIAL IV PUSH SCH (12:31)
[2016-11-28] MEDS: SODIUM CHLOR 0.9% 1000 ML INJ 1,000 ML IV SCH (13:30)
--- NOTE | 2016-11-28 15:05 | HHI.GIFU ---
Subjective Remarks Resting in bed. States he feels good and wants to go home. No n/v/abdominal pain. Tolerating clear liquids and states he can eat solid food if we give it to him. (Ramila Barone) Objective Vitals I&O Vital Signs Date Time Temp Pulse Resp B/P (MAP) Pulse Ox O2 Delivery O2 Flow Rate FiO2 11/28/16 11:30 98.1 76 16 129/70 (89) 96 11/28/16 10:10 98 21 11/28/16 08:00 72 11/28/16 08:00 98.5 80 20 139/90 (106) 98 11/28/16 04:30 98.3 69 17 112/68 (83) 97 11/28/16 00:51 98.1 66 17 118/67 (84) 97 11/27/16 20:36 98 21 11/27/16 20:30 98.6 76 18 122/77 (92) 97 11/27/16 15:37 98.3 73 20 129/66 (87) 98 I/O 11/27/16 11/27/16 11/27/16 11/28/16 11/28/16 11/28/16 07:00 15:00 23:00 07:00 15:00 23:00 Intake Total 500 ml 480 ml Output Total 2 ml Balance 500 ml 478 ml Intake Oral 0 ml 480 ml IV Total 0 ml Other 500 ml Output Urine Total 2 ml # Voids 4 0 2 Laboratory Laboratory Tests Test 11/28/16 01:00 11/28/16 05:04 11/28/16 06:04 Stool C. difficile Toxin (PCR) NEGATIVE Stl C. difficile Toxin Epiderm 027 PRESUMPTIVE NEGATIVE White Blood Count 13.2 Red Blood Count 4.39 Hemoglobin 13.4 Hematocrit 38.1 Mean Corpuscular Volume 86.8 Mean Corpuscular Hemoglobin 30.6 Mean Corpuscular Hemoglobin Concent 35.3 Red Cell Distribution Width 12.1 Platelet Count 221 Mean Platelet Volume 7.7 Blood Urea Nitrogen 9 Creatinine 1.11 Random Glucose 75 Total Protein 7.5 Albumin 3.8 Calcium Level 8.9 Alkaline Phosphatase 110 Aspartate Amino Transf (AST/SGOT) 21 Alanine Aminotransferase (ALT/SGPT) 52 Total Bilirubin 0.7 Sodium Level 143 Potassium Level 3.6 Chloride Level 108 Carbon Dioxide Level 26.0 Anion Gap 9 Estimat Glomerular Filtration Rate 80 Date/Time Source Procedure Growth Status 11/26/16 13:20 Blood Peripheral Aerobic Blood Culture - Preliminary NO GROWTH IN 2 DAYS Resulted 11/26/16 13:20 Blood Peripheral Anaerobic Blood Culture - Preliminary NO GROWTH IN 2 DAYS Resulted 11/28/16 01:00 Stool Stool Cryptosporidium Exam Pending Resulted 11/28/16 01:00 Stool Stool Stool Pus (SOHAN) - Final NO WBC'S SEEN Resulted 11/28/16 01:00 Stool Stool Giardia Antigen (SOHAN) Pending Resulted Imaging Last Impressions Abdomen MRI 11/26/16 0000 Signed Impressions: Service Date/Time: Saturday, November 26, 2016 08:33 - CONCLUSION: 1. Abnormal signal and enhancement in a geographic pattern involving segments 6 and 7. This is of uncertain etiology. Given the diffusion signal abnormality this is unlikely to be simply related to perfusion abnormality, however, no mass is present. Imaging features are nonspecific. Nonspecific infection or inflammation is a consideration. Consider followup MRI in approximately 4-6 weeks to assess for change. 2. Mild splenomegaly. John Miller MD Physical Exam HEENT: Normocephalic; atraumatic; no jaundice. CHEST: CTA CARDIAC: RRR ABDOMEN: Soft, nondistended, nontender; no hepatosplenomegaly; bowel sounds are present in all four quadrants. EXTREMITIES: No clubbing, cyanosis, or edema. SKIN: Normal; no rash; no jaundice. SCREEN PRINTING SUPERVISOR: No focal deficits; alert and oriented times three. (Ramila Barone [facility]) Assessment and Plan Plan ASSESSMENT: - Abdominal pain, N/V/D with abnormal imaging with possible mild inflammatory process involving the mesentery. Symptoms x 1 week. S/P ER evaluation [place] (11/24/16)-----> CT scan abdomen and pelvis (11/25/16) revealed mild inflammatory process involving the mesentery within the left upper quadrant suggesting a mesentery right us. Areas of heterogeneity involving the right lobe of the liver. This may simply be technical nature related to the phase of the scan which is relatively early in the portal venous phase. I cannot exclude an infiltrating process. A follow-up outpatient MRI of the liver suggested to further evaluate. Discharged home with Ativan, Reglan, Flagyl/ Cipro x 10 days. S/P GI Evaluation with Dr. Brown (11/25/16)---> recommended CRP, IBD panel, Celiac disease panel to rule out small bowel disease, Levsin as needed, EGD/Colonoscopy with plans for a capsule endoscopy if negative, continuing abx, adding zofran as needed, and stool studies for culture and ova and parasite. Pt woke up with worsening symptoms and came to ER. He has not started abx. Denies any recent travel, suspicious food, sick contacts. MRI (11/26/16)---> abnormal signal and enhancement in a geographic pattern involving segment 6 and 7. This is of uncertain etiology. Given the diffuse signal abnormality this is unlikely to be simply related to perfusion abnormality, however, no masses present. Imaging features are nonspecific. Nonspecific infection or inflammation is a consideration. Consider follow-up MRI in 4-6 weeks to assess for change. Mild splenomegaly. S/P EGD (11/27/16)----> Gastroesophageal reflux disease, erosive gastritis. Pathology pending. Stool studies negative for CDiff. C/S pending. Cryptosporidium pending, Giardia pending, No WBC seen in stool. CRP 0.68. Sed rate 29. Zosyn. Stool studies. Clinically doing well and wants to go home. Afebrile. - Leukocytosis. WBC 13.3. Zosyn. - Mild elevation of AST. CT/MRI as above. LFTs now normal. PLAN: - Diet as tolerated - D/C Zosyn - Flagyl and Cipro - PPI - Avoid NSAIDs - Avoid ETOH - Await ASCA, P-ANCA (under miscellaneous) - Await Celiac panel - Follow up with Dr. Brown 2 weeks - Pt seen and examined by Dr. Celis and myself and this note is written on his behalf (Ramila Barone) Physician Comments Patient seen and examined Agree with above Continue with current supportive care Monitor labs (Neftali Celis MD) Ramila Barone Nov 28, 2016 15:05 Neftali Celis MD Nov 28, 2016 19:22
[2016-11-28] MEDS ORDERED: CIPR-9 PO (15:29)
[2016-11-28] MEDS ORDERED: PANT40TA3 PO (15:30)
[2016-11-28] MEDS ORDERED: METR-1 PO (15:30)
--- NOTE | 2016-11-28 15:31 | HHI.DS ---
Discharge Summary Admission Date Nov 26, 2016 at 10:31 am Discharge Date: Nov 28, 2016 Admitting Diagnosis (1) Abnormal MRI, liver ICD Code: R93.2 - Abnormal findings on diagnostic imaging of liver and biliary tract Diagnosis: Principal Status: Acute (2) Marked eosinophilia ICD Code: D72.1 - Eosinophilia Diagnosis: Principal Status: Acute (3) Intractable abdominal pain ICD Code: R10.9 - Unspecified abdominal pain Diagnosis: Principal Status: Acute Procedures EGD Brief History - From Admission This is a pleasant 26 y/o male with Right upper quadrant pain for one week, but worsening today, he decided to come to ER for evaluation, seen initially at [facility] yesterday and CT scan showed some heterogeneous area in the right lobe of the liver. An MRI was recommended. Patient was diagnosed with mesenteric adenitis and discharged home and asked to follow up with GI. His is here was giving most of the history and says a GI appointment is due for tomorrow. However since the baby got really worse they decided to come here. Patient seems visibly uncomfortable and is not talking due to the discomfort. Vital signs are otherwise stable. Seen in his bedroom and examined, stable no nausea, vomit or diarrhea at this time, he had an episode of nausea and vomit this morning before coming to ER, abdominal pain on epigastric area and upper left and right abdominal pain, 8/10 in intensity non radiated. CBC/BMP: 11/28/16 0504 11/28/16 0604 Significant Findings Laboratory Tests Test 11/26/16 07:45 11/26/16 09:20 11/26/16 09:30 11/26/16 13:15 White Blood Count 13.3 TH/MM3 (4.0-11.0) Red Blood Count 4.42 MIL/MM3 (4.50-5.90) Hematocrit 38.6 % (39.0-51.0) Eosinophils (%) (Auto) 28.1 % (0.0-4.0) Eosinophils # (Auto) 3.7 TH/MM3 (0-0.4) Aspartate Amino Transf (AST/SGOT) 60 U/L (15-37) Estimat Glomerular Filtration Rate 81 ML/MIN (>89) C-Reactive Protein 0.68 MG/DL (0.00-0.30) Test 11/26/16 13:20 11/27/16 10:35 11/28/16 01:00 11/28/16 05:04 Erythrocyte Sedimentation Rate 29 mm/hr (0-15) White Blood Count 12.2 TH/MM3 (4.0-11.0) 13.2 TH/MM3 (4.0-11.0) Red Blood Count 4.32 MIL/MM3 (4.50-5.90) 4.39 MIL/MM3 (4.50-5.90) Hematocrit 38.0 % (39.0-51.0) 38.1 % (39.0-51.0) Eosinophils (%) (Auto) 30.3 % (0.0-4.0) Basophils (%) (Auto) 2.4 % (0.0-2.0) Eosinophils # (Auto) 3.7 TH/MM3 (0-0.4) Basophils # (Auto) 0.3 TH/MM3 (0-0.2) Random Glucose 70 MG/DL (74-106) Potassium Level 3.3 MEQ/L (3.5-5.1) Estimat Glomerular Filtration Rate 79 ML/MIN (>89) Test 11/28/16 06:04 Chloride Level 108 MEQ/L (98-107) Estimat Glomerular Filtration Rate 80 ML/MIN (>89) Imaging Last Impressions Abdomen MRI 11/26/16 0000 Signed Impressions: Service Date/Time: Saturday, November 26, 2016 08:33 - CONCLUSION: 1. Abnormal signal and enhancement in a geographic pattern involving segments 6 and 7. This is of uncertain etiology. Given the diffusion signal abnormality this is unlikely to be simply related to perfusion abnormality, however, no mass is present. Imaging features are nonspecific. Nonspecific infection or inflammation is a consideration. Consider followup MRI in approximately 4-6 weeks to assess for change. 2. Mild splenomegaly. John Miller MD PE at Discharge GENERAL: Overweight, No acute distress. SKIN: Focused skin assessment warm/dry. HEAD: Atraumatic. Normocephalic. EYES: Pupils equal and round. No scleral icterus. No injection or drainage. ENT: No nasal bleeding or discharge. Mucous membranes pink and moist. NECK: Trachea midline. No JVD. CARDIOVASCULAR: Regular rate and rhythm. No murmur appreciated. RESPIRATORY: No accessory muscle use. Clear to auscultation. Breath sounds equal bilaterally. GASTROINTESTINAL: Soft, mild tenderness on palpation, positive bowel sounds. MUSCULOSKELETAL: No obvious deformities. No clubbing. No cyanosis. No edema. NEUROLOGICAL: Awake and alert. No obvious cranial nerve deficits. Motor grossly within normal limits. Normal speech. PSYCHIATRIC: Appropriate mood and affect; insight and judgment normal. Hospital Course This is a pleasant 26 y/o male with Right upper quadrant pain for one week, but worsening today, he decided to come to ER for evaluation, seen initially at [facility] yesterday and CT scan showed some heterogeneous area in the right lobe of the liver. An MRI was recommended. Patient was diagnosed with mesenteric adenitis and discharged home and asked to follow up with GI. His is here was giving most of the history and says a GI appointment is due for tomorrow. However since the baby got really worse they decided to come here. Patient seems visibly uncomfortable and is not talking due to the discomfort. Vital signs are otherwise stable. Seen in his bedroom and examined, stable no nausea, vomit or diarrhea at this time, he had an episode of nausea and vomit this morning before coming to ER, abdominal pain on epigastric area and upper left and right abdominal pain, 8/10 in intensity non radiated. 11/27: Seen by GI specialist, recommended to continue NPO, IV fluids, continue Zosyn, laboratory performed. with Diagnosis of Abdominal pain with Nausea, vomit and diarrhea, was performed EGD found GERD and Erosive Gastritis. continue PPIs. Assessment and Plan 1. Intractable Abdominal pain, nausea and vomit with abnormal Imaging study at this time improved his nausea and vomit, continue with abdominal pain, GI specialist in to see the patient at this time, will follow recommendations given IV fluids and left NPO for probable procedures has eosinophils high Heterogeneity in the liver with uncertain etiology. continue Famotidine pain medicine and supportive IV fluids. was performed EGD found GERD and Erosive Gastritis. continue PPIs. Improved Symptomatology. Recommended by GI specialist to Discontinue Zosyn, continue Flagyl and Cipro Continue PPIs, avoid alcohol, follow ASCA, P-ANCA, Celiac Panel and Follow with doctor Stephanie in two weeks. DVT prophylaxis with SCDs for probable procedure to follow. Code Status Full Code. Discussed Condition With Patient and Charge Nurse. all questions answered to the best of my abilities. Discharge Planning Discharge Home now. Pt Condition on Discharge: Good Discharge Disposition: Discharge Home Discharge Time: <= 30 minutes Discharge Instructions DIET: Follow Instructions for: As Tolerated, No Restrictions Activities you can perform: Regular-No Restrictions Alexis Fischer MD Nov 28, 2016 15:31
[2016-11-28] MEDS ORDERED: CIPROFLOXACIN 500 MG TAB PO SCH (21:00)
[2016-11-28] MEDS ORDERED: metroNIDAZOLE 500 MG TAB PO SCH (22:00)
[2016-11-29 03:51] LABS: IGA SERUM 146 mg/dL (81-463); MYELOPEROXIDASE LESS THAN 1.0 AI (<1.0); PROTEINASE-3 LESS THAN 1.0 AI (<1.0)
[2016-11-29 07:50] LABS: ENDOMYSIAL AB TITER ND (<1:5); TISSUE TRANSGLUTAMINASE AB LESS THAN 1 U/mL (0-4)
== END 2016-11-28 17:41 | disposition home or self-care (01) | DRG 392 ==
LOC: NEPC 07:25 → NEDA 10:31 → N05B 12:01
PROVIDERS: ADMIT Internal Medicine; ATTEND Internal Medicine
PROC: 0DB68ZX Excision of Stomach, Via Natural or Artificial Opening Endoscopic, Diagnostic (ICD-10-PCS; 2016-11-27)
PROC: 0DB38ZX Excision of Lower Esophagus, Via Natural or Artificial Opening Endoscopic, Diagnostic (ICD-10-PCS; principal; 2016-11-27 13:40)
DX: K29.60 Other gastritis without bleeding (principal); D72.1 Eosinophilia; E66.3 Overweight; K21.9 Gastro-esophageal reflux disease without esophagitis; R19.7 Diarrhea, unspecified; Z68.28 Body mass index [BMI] 28.0-28.9, adult; Z72.0 Tobacco use; I88.0 Nonspecific mesenteric lymphadenitis
CPT/HCPCS: 74177; 74183; 80053; 80307; 81001; 82784; 83516; 83605; 83690; 85025; 85027; 85652; 86021; 86140; 87040; 87205; 87328; 87329; 87493; 87506; 88305; 88312; 96361; 96365; 96374; 96375; 96376; A9579; C9113; J0330; J1885; J2060; J2270; J2405; J2543; J2765; J7030; J7120; Q9963; Q9967